=== PATIENT | female | born 1945 | race Caucasian/White ===

== ENCOUNTER → 2021-05-25 | Outpatient (CLI) | payer MEDICARE ==
[2021-05-25 15:06] LABS: BASO # 0.03 K/mm3 (0.02-0.10); EOS # 0.23 K/mm3 (0.04-0.40); EOS % 2.6 % (1.0-5.0); HEMOGLOBIN 12.1 g/dL (12.5-16.0); LYMPH# 1.64 K/mm3 (1.50-4.00); MEAN CELL VOLUME 93 fl (78-100); MEAN CORPUSCULAR HEMOGLOBIN 31 pg (27-31); MEAN CORPUSCULAR HGB CONC 33 g/dL (33-37); MEAN PLATELET VOLUME 10.8 fl (7.4-10.4); MONO # 0.86 K/mm3 (0.20-0.80); NEU # 6.07 K/mm3 (1.40-6.50); PLATELET COUNT 259 K/mm3 (130-400); RED BLOOD COUNT 3.97 M/mm3 (4.10-5.30); RED CELL DISTRIBUTION WIDTH 14.4 % (11.5-14.5); WHITE BLOOD COUNT 8.8 K/mm3 (4.8-10.8)
[2021-05-25 15:16] LABS: ALBUMIN 3.4 g/dL (3.4-4.8)
[2021-05-25 15:17] LABS: CALCIUM 8.4 mg/dL (8.3-10.5)
[2021-05-25 15:19] LABS: TOTAL PROTEIN 5.5 g/dL (6.2-8.1)
[2021-05-25 15:20] LABS: TOTAL BILIRUBIN 0.3 mg/dL (0.2-1.2)
[2021-05-25 16:46] LABS: URINE APPEARANCE HAZY; URINE BILIRUBIN NEGATIVE (NEGATIVE); URINE BLOOD TRACE (NEGATIVE); URINE COLOR YELLOW; URINE GLUCOSE NEGATIVE (NEGATIVE); URINE KETONE NEGATIVE (NEGATIVE); URINE LEUKOCYTE ESTERASE 1+ (NEGATIVE); URINE MUCUS PRESENT (NOT PRESENT); URINE NITRATE POSITIVE (NEGATIVE); URINE PROTEIN(semi-quant) TRACE mg/dL (NEGATIVE); URINE UROBILINOGEN NORMAL (NORMAL)
== END ==
LOC: LAB 14:45
PROVIDERS: Family Medicine
DX: I73.00 Raynaud's syndrome without gangrene (principal); I10 Essential (primary) hypertension; E78.5 Hyperlipidemia, unspecified

== ENCOUNTER 2021-08-04 11:53 | Emergency (ER) | payer MEDICARE, MEDICAID ==
[~2021-08-04] VITALS: Wt 57.8 kg
[2021-08-04] MEDS ORDERED: ACETAMINOPHEN-H1 TA1 PO (12:09)
[2021-08-04] MEDS ORDERED: CELEXA 20MG20 MG/TA1 PO (12:09)
[2021-08-04] MEDS ORDERED: SUCRALFATE1 G1 PO (12:10)
[2021-08-04] MEDS ORDERED: QUETIAPINE FUMA25 M3 PO (12:10)
[2021-08-04] MEDS ORDERED: MS CONTIN 330 MG/TAB PO (12:10)
[2021-08-04 12:23] LABS: BASO # 0.01 K/mm3 (0.02-0.10); EOS # 0.15 K/mm3 (0.04-0.40); EOS % 2.2 % (1.0-5.0); HEMATOCRIT 45.7 % (37.0-47.0); LYMPH# 2.38 K/mm3 (1.50-4.00); MEAN CELL VOLUME 88 fl (78-100); MEAN CORPUSCULAR HEMOGLOBIN 29 pg (27-31); MEAN CORPUSCULAR HGB CONC 33 g/dL (33-37); MEAN PLATELET VOLUME 11.5 fl (7.4-10.4); NEU # 3.32 K/mm3 (1.40-6.50); PLATELET COUNT 285 K/mm3 (130-400); RED CELL DISTRIBUTION WIDTH 13.7 % (11.5-14.5); WHITE BLOOD COUNT 6.9 K/mm3 (4.8-10.8)
[2021-08-04 12:33] LABS: ALBUMIN 3.7 g/dL (3.4-4.8); POTASSIUM 4.2 mmol/L (3.5-5.1)
[2021-08-04 12:34] LABS: CALCIUM 9.5 mg/dL (8.3-10.5)
[2021-08-04 12:35] LABS: TOTAL PROTEIN 6.9 g/dL (6.2-8.1)
[2021-08-04 12:37] LABS: TOTAL BILIRUBIN 0.4 mg/dL (0.2-1.2)
[2021-08-04 13:44] LABS: URINE APPEARANCE HAZY; URINE BILIRUBIN NEGATIVE (NEGATIVE); URINE COLOR YELLOW; URINE GLUCOSE NEGATIVE (NEGATIVE); URINE KETONE TRACE (NEGATIVE); URINE NITRATE POSITIVE (NEGATIVE); URINE PROTEIN(semi-quant) 1+ (NEGATIVE); URINE UROBILINOGEN NORMAL (NORMAL)
[2021-08-04 13:45] LABS: URINE BLOOD TRACE (NEGATIVE); URINE LEUKOCYTE ESTERASE NEGATIVE (NEGATIVE)
[2021-08-04] MEDS ORDERED: CEPHALEXIN500 M2 PO (14:11)
[2021-08-04] MEDS ORDERED: ZOFRAN ODT4 MG PO (14:13)
[2021-08-04 14:27] VITALS: BP 148/92
== END 2021-08-04 14:27 | disposition home or self-care (01) ==
LOC: ED 11:53
PROVIDERS: Nurse Practitioner
DX: N39.0 Urinary tract infection, site not specified (principal); I10 Essential (primary) hypertension; F41.9 Anxiety disorder, unspecified; Z20.822 Contact with and (suspected) exposure to COVID-19; Z87.891 Personal history of nicotine dependence; Z88.2 Allergy status to sulfonamides; Z88.1 Allergy status to other antibiotic agents; Z79.899 Other long term (current) drug therapy
CPT/HCPCS: J0696; J2405; J7040

== ENCOUNTER → 2021-08-31 | Outpatient (CLI) | payer MEDICARE, MEDICAID ==
[~2021-08-31] MED LIST: ACETAMINOPHEN-H1 TA1 PO; CELEXA 20MG20 MG/TA1 PO; CEPHALEXIN500 M2 PO; MS CONTIN 330 MG/TAB PO; QUETIAPINE FUMA25 M3 PO; SUCRALFATE1 G1 PO; ZOFRAN ODT4 MG PO
== END ==
LOC: LAB 11:56
DX: R19.5 Other fecal abnormalities (principal)

== ENCOUNTER → 2023-05-17 | Outpatient (CLI) | payer OTHER, MEDICARE, MEDICAID ==
[2023-05-17 06:03] LABS: ALBUMIN 3.3 g/dL (3.4-4.8)
[2023-05-17 06:04] LABS: CALCIUM 8.5 mg/dL (8.3-10.5); HEMATOCRIT 45.1 % (37.0-47.0); HEMOGLOBIN 14.6 g/dL (12.5-16.0); MEAN PLATELET VOLUME 12.2 fl (7.4-10.4); RED BLOOD COUNT 4.84 M/mm3 (4.10-5.30); RED CELL DISTRIBUTION WIDTH 15.5 % (11.5-14.5); WHITE BLOOD COUNT 7.2 K/mm3 (4.8-10.8)
[2023-05-17 06:06] LABS: TOTAL PROTEIN 5.8 g/dL (6.2-8.1)
[2023-05-17 06:07] LABS: TOTAL BILIRUBIN 0.5 mg/dL (0.2-1.2)
== END ==
LOC: LAB 03:40
PROVIDERS: Family Medicine
DX: I44.2 Atrioventricular block, complete (principal); I10 Essential (primary) hypertension